=== PATIENT | female | born 1980 | race Caucasian/White ===

== ENCOUNTER 2018-12-16 14:12 | Emergency (ER) | payer SELFPAY ==
[~2018-12-16] VITALS: Ht 160 cm; Wt 59.0 kg
[~2018-12-16 14:12] MED LIST: PREN1TAB49
[2018-12-16 14:14] VITALS: BP 120/58; PULSE 83; RESP 19; Ht 160 cm; Wt 59.0 kg
== END 2018-12-16 15:00 | disposition left against medical advice (07) ==
LOC: FTE 14:12
DX: Z53.21 Procedure and treatment not carried out due to patient leaving prior to being seen by health care provider (principal)